=== PATIENT | female | born 1960 | race Two or more races ===

== ENCOUNTER → 2017-04-12 | Emergency (ER) | payer OTHER ==
[~2017-04-12] VITALS: Ht 162.6 cm; Wt 90.7 kg
[~2017-04-12] MED LIST: ATACAND32 MG PO; CALTRATE-600/VI1 TA1 PO; CYCLOBENZAPRINE10 MG PO; FORTAMET1000 MG; LASIX20 MG; NEXIUM20 MG/PACK PO; ORPHENADRINE C100 MG PO; PERCOCET 5-3251 EACH PO; PRILOSEC OTC20 MG; WELLBUTRIN SR150 MG; ZESTRIL40 M1
== END | disposition home or self-care (01) ==
LOC: ER 19:58
DX: S83.8X1A Sprain of other specified parts of right knee, initial encounter (principal); X50.9XXA Other and unspecified overexertion or strenuous movements or postures, initial encounter; Y93.01 Activity, walking, marching and hiking; Y92.89 Other specified places as the place of occurrence of the external cause; Y99.8 Other external cause status

== ENCOUNTER 2023-07-20 08:10 | Outpatient (CLI) | payer OTHER ==
[~2023-07-20 08:10] MED LIST changes: +ATORVASTATIN CA20 MG PO; +LOSARTAN-HCTZ1 EAC2 PO; +OMEPRAZOLE40 MG PO; +TYLENOL ARTHRI650 MG PO
== END 2023-07-20 08:15 | disposition home or self-care (01) ==
LOC: RX STUDY 08:10
DX: R13.14 Dysphagia, pharyngoesophageal phase (principal)